=== PATIENT | female | born 1990 ===

== ENCOUNTER 2019-09-24 05:56 | Day surgery (SDC) | payer OTHER ==
[~2019-09-24 05:56] MED LIST: ATABEX DHA CAP1 EACH; INTEGRA CAPSUL1 EACH; METADATE CD30 MG PO; PROCARDIA PO; TOPAMAX50 MG PO
== END 2019-09-24 13:27 | disposition home or self-care (01) ==
LOC: CIR.AMB 05:56
DX: O02.1 Missed abortion (principal)

== ENCOUNTER 2024-10-11 07:39 | Inpatient (IN) | payer OTHER ==
[~2024-10-11] VITALS: Ht 154.9 cm; Wt 2.7 kg
[2024-10-11 07:36] VITALS: BP 121/85; O2SAT 100
[2024-10-11] MEDS ORDERED: PRENATAL TABLE1 EAC1 PO (08:27)
[2024-10-11] MEDS ORDERED: NIFEDIPINE20 MG PO (08:28)
[2024-10-11] MEDS ORDERED: TERBUTALINE SULF5 MG PO (08:29)
[2024-10-11 08:58] LABS: PH,URINE 7.5 (5.0-8.0); URINE APPEARANCE Clear; URINE BILIRRUBIN Negative (NEGATIVE); URINE BLOOD Moderate; URINE COLOR Yellow; URINE GLUCOSE Negative (NEGATIVE); URINE KETONE Negative (NEGATIVE); URINE LEUKOCYTE Trace; URINE NITRATE Negative; URINE PROTEIN 30 (NEGATIVE)
[2024-10-11 09:01] LABS: HEMATOCRIT 35.3 % (36.0-45.00); HEMOGLOBIN 12.1 g/dL (12.0-15.00); MEAN CELL VOLUME 86.6 fL (80.00-100.00); MEAN CORPUSCULAR HEMOGLOBIN 29.6 pg (27.00-32.0); MEAN CORPUSCULAR HGB CONC 34.1 g/dl (32.0-36.0); PLATELET COUNT 229 K/uL (150-450); RED BLOOD COUNT 4.08 M/uL (4.00-6.00); RED CELL DISTRIBUTION WIDTH 13.2 % (11.5-14.5)
[2024-10-11 09:03] LABS: URINE EPITHELIAL CELLS 29.7 uL (0.0-38.8); URINE RBC 236.2 uL (0.0-20.8); URINE WBC 41.9 uL (0.0-23.2)
[2024-10-11 09:08] LABS: URINE CAST 0.29 uL (0.0-1.40)
[2024-10-11 09:23] LABS: INR < 0.93; PARTIAL THROMBOPLASTIN TIME 26.4 SECONDS (22.0-34.0); PROTHROMBIN TIME 10.2 SECONDS (9.0-11.5)
[2024-10-11] MEDS ORDERED: AMPICILLIN SODIUM 2,000 MG VIAL IV STA (09:39)
[2024-10-11] MEDS ORDERED: BETAMETHASONE ACETATE,SOD PHOS 30 MG/5 ML ML IM STA (09:39)
[2024-10-11] MEDS ORDERED: MEPERIDINE HCL/PF 50 MG/ML VIAL IM SCH (09:45)
[2024-10-11] MEDS ORDERED: RINGERS SOLUTION,LACTATED 1,000 ML IV SCH (09:45)
[2024-10-11] MEDS ORDERED: CEFAZOLIN SODIUM 1,000 MG VIAL IV STA (09:48)
[2024-10-11 09:55] LABS: ALBUMIN 2.6 gm/dL (3.4-5.0); BILIRUBIN TOTAL 0.42 mg/dL (0.3-1.2); CREATININE SERUM 0.5 mg/dL (0.55-1.02); GFR 142.09; GLOBULINA 4.1 G/DL (2.4-3.5); POTASSIUM 4.37 mEq/L (3.5-5.1); TOTAL PROTEIN 6.7 gm/dL (6.4-8.2)
[2024-10-11] MEDS ORDERED: MORPHINE SULFATE 4 MG/ML VIAL IV ONE ×2 (10:45→11:15)
[2024-10-11] MEDS ORDERED: PROMETHAZINE HCL 25 MG/ML AMPUL IV SCH (11:00)
[2024-10-11] MEDS ORDERED: ERYTHROMYCIN BASE OPHT 1GM EACH TUBE OP ONE (11:00)
[2024-10-11] MEDS ORDERED: OXYTOCIN 10 UNITS/ML VIAL IV ONE (11:00)
[2024-10-11 12:42] VITALS: BP 136/83
[2024-10-11 12:56] LABS: HEMATOCRIT 34.3 % (36.0-45.00); HEMOGLOBIN 11.4 g/dL (12.0-15.00); MEAN CELL VOLUME 86.9 fL (80.00-100.00); MEAN CORPUSCULAR HEMOGLOBIN 28.8 pg (27.00-32.0); MEAN CORPUSCULAR HGB CONC 33.1 g/dl (32.0-36.0); PLATELET COUNT 236 K/uL (150-450); RED BLOOD COUNT 3.95 M/uL (4.00-6.00); RED CELL DISTRIBUTION WIDTH 13.3 % (11.5-14.5)
[2024-10-11] MEDS ORDERED: CEFAZOLIN SODIUM 1,000 MG VIAL IV SCH (14:00)
[2024-10-11 16:00] VITALS: BP 115/76
[2024-10-12] VITALS: BP 98/63
[2024-10-12 07:17] LABS: HEMATOCRIT 25.3 % (36.0-45.00); MEAN CELL VOLUME 86.9 fL (80.00-100.00); MEAN CORPUSCULAR HGB CONC 34.2 g/dl (32.0-36.0); PLATELET COUNT 203 K/uL (150-450); RED BLOOD COUNT 2.91 M/uL (4.00-6.00); RED CELL DISTRIBUTION WIDTH 13.3 % (11.5-14.5)
[2024-10-12 07:21] LABS: MEAN CORPUSCULAR HEMOGLOBIN 29.5 pg (27.00-32.0)
[2024-10-12 07:22] LABS: HEMOGLOBIN 8.6 g/dL (12.0-15.00)
[2024-10-12 08:00] VITALS: BP 109/66
[2024-10-12] MEDS ORDERED: IRON FUM,PS/FOLIC/BCOMP,C NO.9 1 CAP CAPSULE PO SCH (09:00)
[2024-10-12] MEDS ORDERED: SOD FERRIC GLUC COMPLX/SUCROSE 62.5 MG/5 ML AMPUL IV SCH (09:00)
[2024-10-12] MEDS ORDERED: OXYTOCIN 20 UNITS/1000ML RL PIGGYBAG IV SCH (10:15)
[2024-10-12] MEDS ORDERED: OxyCODONE HCL/APAP UD (PERCOCET) PO SCH ×2 (10:45→14:00)
[2024-10-12] MEDS ORDERED: OXYTOCIN 10 UNITS/ML VIAL IV SCH (11:30)
[2024-10-12] MEDS ORDERED: SIMETHICONE 125 MG CAPSULE PO SCH (13:00)
[2024-10-12 15:58] VITALS: BP 106/72
[2024-10-13 00:35] VITALS: BP 112/69
[2024-10-13 06:53] LABS: MEAN CELL VOLUME 88.5 fL (80.00-100.00); MEAN CORPUSCULAR HGB CONC 33.5 g/dl (32.0-36.0); PLATELET COUNT 183 K/uL (150-450); RED BLOOD COUNT 2.71 M/uL (4.00-6.00)
[2024-10-13 06:54] LABS: MEAN CORPUSCULAR HEMOGLOBIN 29.5 pg (27.00-32.0)
[2024-10-13 08:00] VITALS: BP 112/73
[2024-10-13 16:00] VITALS: BP 115/78
[2024-10-13] MEDS ORDERED: SOD FERRIC GLUC COMPLX/SUCROSE 62.5 MG/5 ML AMPUL IV NR (17:00)
[2024-10-13 20:24] LABS: HEMATOCRIT 31.9 % (36.0-45.00); HEMOGLOBIN 10.8 g/dL (12.0-15.00); MEAN CELL VOLUME 86.2 fL (80.00-100.00); MEAN CORPUSCULAR HEMOGLOBIN 29.2 pg (27.00-32.0); MEAN CORPUSCULAR HGB CONC 33.9 g/dl (32.0-36.0); PLATELET COUNT 194 K/uL (150-450); RED CELL DISTRIBUTION WIDTH 13.8 % (11.5-14.5)
[2024-10-14 00:45] VITALS: BP 135/79
[2024-10-14 08:20] VITALS: BP 132/81
[2024-10-14] MEDS ORDERED: IRON FUM,PS/FOLIC/BCOMP,C NO.9 1 CAP CAPSULE PO SCH (17:00)
== END 2024-10-14 15:48 | disposition home or self-care (01) | DRG 788 ==
LOC: OB/GYN 07:39 → LDR 07:39 → O/R 09:03 → OB/GYN 09:54
PROVIDERS: ADMIT Specialist; ATTEND Specialist
PROC: 0DNW0ZZ Release Peritoneum, Open Approach (ICD-10-PCS; 2024-10-11)
PROC: 4A1HXCZ Monitoring of Products of Conception, Cardiac Rate, External Approach (ICD-10-PCS; 2024-10-11)
PROC: 10D00Z1 Extraction of Products of Conception, Low, Open Approach (ICD-10-PCS; principal; 2024-10-11 10:30)
DX: O60.14X0 Preterm labor third trimester with preterm delivery third trimester, not applicable or unspecified (principal); O99.892 Other specified diseases and conditions complicating childbirth; O62.2 Other uterine inertia; O69.81X0 Labor and delivery complicated by cord around neck, without compression, not applicable or unspecified; N73.6 Female pelvic peritoneal adhesions (postinfective); Z3A.34 34 weeks gestation of pregnancy; Z37.0 Single live birth